=== PATIENT | female | born 1995 | race Caucasian/White ===

== ENCOUNTER 2017-05-12 14:07 | Emergency (ER) | payer OTHER ==
[2017-05-12 14:23] VITALS: BP 127/84
--- NOTE | 2017-05-12 14:35 | EDM.PDOC ---
ED HPI GENERAL MEDICAL PROBLEM - General Chief Complaint: Laceration Stated Complaint: CUT THUMB Time Seen by Provider: 05/12/17 14:13 Source of Information: Reports: Patient, RN, RN Notes Reviewed History Limitations: Reports: No Limitations - History of Present Illness INITIAL COMMENTS - FREE TEXT/NARRATIVE: Patient presents to the ED at [facility] after she sustained a laceration to the tip of her left thumb. Patient states she was cleaning a meat knife when her left hand slipped, causing a laceration to the tip of the left thumb. No previous injury or trauma to the left upper extremity. Patient denies any pain. Patient is able to move left thumb without any issues. Onset: Today Right 1-Thumb Pain Score (Numeric/FACES): 3 - Related Data Allergies Allergy/AdvReac Type Severity Reaction Status Date / Time codeine Allergy Stomach Verified 05/12/17 14:25 Ache Home Meds: Home Meds ClonazePAM [KlonoPIN] 0.5 mg PO ASDIRECTED 10/22/15 [History] Cephalexin 500 mg PO BID 10/23/15 [History] Escitalopram [Lexapro] 20 mg PO DAILY 10/23/15 [History] Zolpidem Tartrate [Zolpidem Tartrate ER] 12.5 mg PO BEDTIME PRN 10/23/15 [ History] busPIRone [Buspar] 30 mg PO BID 09/30/16 [History] Spironolactone [Aldactone] 150 mg PO DAILY 05/12/17 [History] Venlafaxine [Effexor] 150 mg PO DAILY 05/12/17 [History] hydrOXYzine Pamoate [Vistaril] 50 mg PO BEDTIME 05/12/17 [History] Past Medical History - Past Health History Medical/Surgical History: Denies Medical/Surgical History Psychiatric History: Reports: Anxiety, Depression - Past Surgical History Other HEENT Surgeries/Procedures: adenoidectomy Musculoskeletal Surgical History: Reports: Arthroscopic Knee Social & Family History - Tobacco Use Smoking Status *Q: Never Smoker Second Hand Smoke Exposure: No - Recreational Drug Use Recreational Drug Use: No ED ROS GENERAL - Review of Systems Review Of Systems: See Below Constitutional: Denies: Fever, Chills, Weakness Respiratory: Denies: Shortness of Breath, Cough Cardiovascular: Denies: Chest Pain, Palpitations Skin: Reports: Wound (cut to tip of left thumb) Neurological: Reports: No Symptoms. Denies: Numbness, Paresthesia, Tingling ED EXAM, SKIN/RASH Exam: See Below Exam Limited By: No Limitations General Appearance: Alert, No Apparent Distress Respiratory/Chest: No Respiratory Distress, Lungs Clear, Normal Breath Sounds Cardiovascular: Regular Rate, Rhythm Extremities: Normal Capillary Refill (left hand) Neurological: Alert, Oriented Skin: Warm, Dry, Normal Color, No Rash, Wound/Incision (0.7cm laceration to the tip of the left thumb; low grade venous ooze; CMS intact) Location, Skin: Upper Extremity, Left ED SKIN PROCEDURES - Laceration/Wound Repair Left Finger Lac/Wound length In cm: 0.7 Appearance: Superficial, Clean Distal NVT: Neuro & Vascular Intact, No Tendon Injury Exploration/Debridement/Repair: Wound Explored, Explored to Base, No Foreign Material Found, Wound Margins Revised Closed with: Dermabond Sterile Dressing Applied: Nurse Tetanus Status Addressed: Yes Complications: No Progress/Comments: 0.7cm horizontal laceration to the tip of the left thumb; low grade venous ooze ; area cleaned with alcohol pad; Dermabond applied and hemostatis achieved. Patient tolerated procedure well, no complications. Course - Vital Signs Last Recorded V/S: Last Vital Signs Temp 36.4 C 05/12/17 14:10 Pulse 79 05/12/17 14:10 Resp 16 05/12/17 14:10 BP 127/84 05/12/17 14:10 Pulse Ox 96 05/12/17 14:10 Departure - Departure Time of Disposition: 14:50 Disposition: Home, Self-Care 01 Condition: Good Clinical Impression: Thumb laceration Qualifiers: Encounter type: initial encounter Damage to nail status: with damage Foreign body presence: without foreign body Laterality: left Qualified Code(s): S61.112A - Laceration without foreign body of left thumb with damage to nail, initial encounter - Discharge Information Instructions: Laceration Care, Adult, Tissue Adhesive Wound Care Forms: ED Department Discharge Additional Instructions: 1. Stay well hydrated and rest 2. Keep bandage on for 1 week, then remove 3. Glue will remove itself, do not force 4. See your Primary as symptoms warrant 5. Keep area clean and dry - Problem List Review Problem List Initiated/Reviewed/Updated: Yes
== END 2017-05-12 14:57 | disposition home or self-care (01) ==
LOC: VM.ED 14:07
DX: S61.112A Laceration without foreign body of left thumb with damage to nail, initial encounter (principal); F41.9 Anxiety disorder, unspecified; F32.9 Major depressive disorder, single episode, unspecified; Z98.890 Other specified postprocedural states; Z79.899 Other long term (current) drug therapy; Z88.5 Allergy status to narcotic agent; W26.0XXA Contact with knife, initial encounter
CPT/HCPCS: 12001; 99283

== ENCOUNTER 2017-08-08 09:50 | Emergency (ER) | payer OTHER ==
--- NOTE | 2017-08-08 10:59 | EDM.PDOC ---
ED HPI GENERAL MEDICAL PROBLEM - General Chief Complaint: General Stated Complaint: ILL Time Seen by Provider: 08/08/17 10:37 Source of Information: Reports: Patient History Limitations: Reports: No Limitations - History of Present Illness INITIAL COMMENTS - FREE TEXT/NARRATIVE: Patient reports a sexual experience on Tuesday with another woman. They did not have genital or oral contact. Reported contact of kissing and genital manipulation with fingers only. She is worried she has a STI. Very anxious. Also feels guilt as she has a girlfriend who lives in [place]. She denies all symptoms or problems. No discharge, burning, pain with urination or frequency, no hesitancy. No fever or chills. 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 (see below) (denies pain) - Related Data Allergies Allergy/AdvReac Type Severity Reaction Status Date / Time codeine Allergy Stomach Verified 05/12/17 14:25 Ache Home Meds: Home Meds ClonazePAM [KlonoPIN] 0.5 mg PO ASDIRECTED 10/22/15 [History] Cephalexin 500 mg PO BID 10/23/15 [History] Escitalopram [Lexapro] 20 mg PO DAILY 10/23/15 [History] Zolpidem Tartrate [Zolpidem Tartrate ER] 12.5 mg PO BEDTIME PRN 10/23/15 [ History] busPIRone [Buspar] 30 mg PO BID 09/30/16 [History] Spironolactone [Aldactone] 150 mg PO DAILY 05/12/17 [History] Venlafaxine [Effexor] 150 mg PO DAILY 05/12/17 [History] hydrOXYzine Pamoate [Vistaril] 50 mg PO BEDTIME 05/12/17 [History] Past Medical History - Past Health History Medical/Surgical History: Denies Medical/Surgical History Psychiatric History: Reports: Anxiety, Depression - Past Surgical History Other HEENT Surgeries/Procedures: adenoidectomy Musculoskeletal Surgical History: Reports: Arthroscopic Knee Social & Family History - Tobacco Use Smoking Status *Q: Never Smoker Second Hand Smoke Exposure: No - Recreational Drug Use Recreational Drug Use: No ED ROS GENERAL - Review of Systems Review Of Systems: See Below Constitutional: Reports: No Symptoms GI/Abdominal: Reports: No Symptoms : Reports: No Symptoms ED EXAM, GENERAL - Physical Exam Exam: Not Obtained Course - Re-Assessments/Exams Free Text/Narrative Re-Assessment/Exam: 08/08/17 10:41 Patient largely counseled regarding how to spread STI's. No signs or symptoms at this time and I did give her education regarding signs and symptoms and if she were to develop any that she should go to the clinic rather than the emergency room. I also did advise her to talk with her girlfriend back home in [place] and deal with the guilt she has developed over this incident. She does have a history of anxiety and does take medication for this. I also advised her to medicate with her PRN dosing for anxiety as she was quite visible anxious and upset. She did express understanding of what we discussed. Departure - Departure Time of Disposition: 10:45 Disposition: Home, Self-Care 01 Condition: Good Clinical Impression: Anxiety - Discharge Information Referrals: PCP,None [Primary Care Provider] - Additional Instructions: instructed to follow up with clinic if she begins exhibiting any S/S of STI. Visit was mostly counseling and alleviation of anxiety.
== END 2017-08-08 10:45 | disposition home or self-care (01) ==
LOC: VM.ED 09:50
DX: F41.9 Anxiety disorder, unspecified (principal); F32.9 Major depressive disorder, single episode, unspecified; Z98.890 Other specified postprocedural states; Z79.899 Other long term (current) drug therapy; Z88.5 Allergy status to narcotic agent
CPT/HCPCS: 99281